=== PATIENT | male | born 1980 | race Caucasian/White ===

== ENCOUNTER → 2025-03-16 09:45 | Outpatient (CLI) | payer OTHER, SELFPAY ==
--- NOTE | 2025-03-16 09:51 | DI.RAD.S_ITS ---
PROCEDURE: XR FOOT LT 2V INDICATIONS: Rachelle Lacey TECHNIQUE: 3 views of the foot were acquired. COMPARISON: None. FINDINGS: Bones: No fractures or dislocations. No suspicious bony lesions. Soft tissues: No tibiotalar joint effusion. Achilles tendon appears normal. IMPRESSION: No acute bony abnormality. Approved by: Jasmeet Barney M.D. on 03/16/2025 at 17:45
== END ==
LOC: RAD 09:49
PROVIDERS: PCP Family Medicine; Referring Provider Family Medicine; Visit Provider Family Medicine
DX: M79.675 Pain in left toe(s) (principal)
CPT/HCPCS: 73620

== ENCOUNTER → 2025-07-16 11:30 | Outpatient (CLI) | payer OTHER, SELFPAY ==
--- NOTE | 2025-07-16 11:34 | DI.RAD.S_ITS ---
PROCEDURE: XR LUMBAR SPINE MIN 4V INDICATIONS: SCIATICA TECHNIQUE: 5 views of the lumbar spine were acquired, including bilateral oblique views. COMPARISON: None. FINDINGS: Bones: 5 nonrib-bearing vertebrae are present. There is normal bony alignment. Moderate to severe L4-L5 disc height loss with adjacent endplate sclerosis and anterior osteophytosis. No vertebral body compression fractures. No suspicious bony lesions. Soft tissues: Overlying bowel gas pattern is normal. No suspicious soft tissue calcifications. Flexion/extension: Normal range of motion and preservation of alignment on flexion and extension views. IMPRESSION: Degenerative change at the L4-L5 level without evidence of acute bony abnormality. Dictated by: Teo Liu M.D. on 07/19/2025 at 6:17 Approved by: Teo Liu M.D. on 07/19/2025 at 6:19
== END ==
PROVIDERS: PCP Family Medicine; Referring Provider Family Medicine; Visit Provider Family Medicine
DX: S39.92XS Unspecified injury of lower back, sequela (principal); M51.369 Other intervertebral disc degeneration, lumbar region without mention of lumbar back pain or lower extremity pain
CPT/HCPCS: 72110

== ENCOUNTER 2025-08-24 12:31 | Emergency (ER) | payer OTHER, SELFPAY ==
[2025-08-24 12:37] VITALS: BP 144/93; PULSE 75; RESP 17; TEMP 36.1; O2SAT 97; BMI 28.5
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
[2025-08-24 15:08] VITALS: BP 116/82; PULSE 62; RESP 14; O2SAT 99
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
== END 2025-08-24 15:14 | disposition home or self-care (01) ==
PROVIDERS: Emergency Provider Emergency Medicine; PCP Family Medicine
DX: F41.9 Anxiety disorder, unspecified (principal)
CPT/HCPCS: 99284

== ENCOUNTER → 2025-09-21 11:14 | Outpatient (CLI) | payer OTHER, SELFPAY ==
--- NOTE | 2025-09-21 11:17 | DI.RAD.S_ITS ---
PROCEDURE: XR WRIST LT 2V INDICATIONS: PAIN TECHNIQUE: AP and lateral views of the wrist were acquired. COMPARISON: [facility], CR, XR WRIST LT MIN 3V, 08/02/2025, 8:30. [facility], CR, XR WRIST LT MIN 3V, 07/06/2025, 8:01. FINDINGS: Bones: Healing transverse fracture at the base of the radius styloid. Remaining osseous structures intact. Radiocarpal joint space narrowing noted. Soft tissues: Moderate soft tissue swelling. IMPRESSION: Healing distal radius styloid fracture. No new fractures are seen. Fracture remains visible. Soft tissue swelling. Dictated by: Moraima Blanton M.D. on 09/21/2025 at 20:15 Approved by: Moraima Blanton M.D. on 09/21/2025 at 20:16
== END ==
LOC: RAD 11:15
PROVIDERS: PCP Family Medicine; Referring Provider Family Medicine; Visit Provider Family Medicine
DX: S52.512D Displaced fracture of left radial styloid process, subsequent encounter for closed fracture with routine healing (principal); M25.532 Pain in left wrist
CPT/HCPCS: 73100

== ENCOUNTER → 2025-11-03 11:47 | Outpatient (CLI) | payer OTHER, SELFPAY ==
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
== END ==
LOC: RAD 11:48
PROVIDERS: PCP Family Medicine; Referring Provider Family Medicine; Visit Provider Family Medicine
DX: Z87.81 Personal history of (healed) traumatic fracture (principal)
CPT/HCPCS: 73100